=== PATIENT | male | born 1965 | race African-American/Black ===

== ENCOUNTER 2019-02-28 19:01 | Emergency (ER) | payer SELFPAY ==
[~2019-02-28] VITALS: Ht 177.8 cm; Wt 82.0 kg
[2019-02-28] MEDS ORDERED: KETOROLAC 30MG/ML VIAL IM ONE (21:00)
[2019-02-28] MEDS ORDERED: ACETAMINOPHEN 325MG TABLET PO ONE (22:30)
[2019-02-28] MEDS ORDERED: ONDANSETRON HCL 4MG TABLET PO ONE (22:30)
[2019-02-28 23:52] VITALS: BP 110/80
== END 2019-03-01 01:04 | disposition home or self-care (01) ==
LOC: ER 19:01
DX: S82.002A Unspecified fracture of left patella, initial encounter for closed fracture (principal); V49.9XXA Car occupant (driver) (passenger) injured in unspecified traffic accident, initial encounter; Y93.9 Activity, unspecified; Y92.410 Unspecified street and highway as the place of occurrence of the external cause
CPT/HCPCS: 36415; 70450; 72100; 72125; 73090; 73562; 80320; 96372; 99284; J1885; Q0162; Z7610; G0480